=== PATIENT | female | born 1985 | race Caucasian/White ===

== ENCOUNTER → 2022-12-20 | Emergency (ER) | payer BC ==
[~2022-12-20] VITALS: Ht 162.6 cm; Wt 90.7 kg
[~2022-12-20] MED LIST: CIPRO500 MG PO
== END | disposition home or self-care (01) ==
LOC: ER 11:58
DX: S81.822A Laceration with foreign body, left lower leg, initial encounter (principal); W18.39XA Other fall on same level, initial encounter; Y93.89 Activity, other specified; Y92.413 State road as the place of occurrence of the external cause